=== PATIENT | male | born 2000 | race Caucasian/White ===

== ENCOUNTER 2024-01-17 21:30 | Emergency (ER) | payer OTHER ==
[~2024-01-17] VITALS: Ht 188 cm; Wt 100.0 kg
[2024-01-17] MEDS ORDERED: PENICILLIN V P500 MG PO (22:04)
[2024-01-17 22:14] VITALS: BP 148/93
[2024-01-17] MEDS ORDERED: PENICILLIN V POTASSIUM 500 MG HOME.PACK PO ONE (22:15)
== END 2024-01-17 22:14 | disposition home or self-care (01) ==
LOC: ED 21:30
DX: K08.89 Other specified disorders of teeth and supporting structures (principal)
CPT/HCPCS: 99282